=== PATIENT | female | born 1950 | race Caucasian/White ===

== ENCOUNTER 2021-07-02 08:58 | Outpatient (CLI) | payer MEDICARE, SELFPAY ==
--- NOTE | ~2021-07-02 | DEXA_ITS ---
Bone Density Report Name: VINNY SOARES Age: 70 Sex: Female Ethnicity: White Date of : 1950 Indication: postmenopausal; screening for osteoporosis; height loss; cancer; rheumatoid arthritis; Referring Provider: LENNY ROBLES Study: Bone densitometry was performed. Exam Date: July 02, 2021 Accession number: [id number] Bone Density: Region BMD T-score Z-score Classification AP Spine(L1-L4) 0.984 -0.6 1.6 Normal Femoral Neck (Left) 0.869 0.2 2.0 Normal Total Hip (Left) 1.030 0.7 2.3 Normal Femoral Neck (Right) 0.902 0.5 2.3 Normal Total Hip (Right) 1.032 0.7 2.3 Normal Total Hip Mean 1.031 0.7 2.3 Normal World Health Organization criteria for BMD impression classify patients as: Normal (T-score at or above -1.0), Osteopenia (T-score between -1.0 and -2.5), or Osteoporosis (T-score at or below -2.5). 10-year Fracture Risk: FRAX not reported because: All T-scores for Spine Total, Hip Total, Femoral Neck at or above -1.0 Clinical Information Provided by Patient: Has rheumatoid arthritis Has used the following medications: Vitamin D, Calcium Has the following medical conditions: Cancer Patient maximum height was 64 Menopause Age: 53 Onset of menses at age 11 Number of children 2 Impression: The patient has normal bone mass. Discussion: BONE DENSITY IS ABOVE THE MINIMUM DESIRABLE LEVEL AT ALL SKELETAL SITES TESTED. This patient?s bone mineral density is above the minimum desirable level (T-score -1.0 or better) at all sites measured. The patient should follow a healthful lifestyle (good nutrition with adequate calcium and vitamin D, and appropriate weight-bearing exercise). Follow-Up: Consider repeating this study in 5 years or sooner if there is some new clinical indication. Reported by: DAYNE on 07/02/2021 9:25:00 AM. Reviewed, dictated and finalized at location [facility]
== END 2021-07-02 08:59 | disposition home or self-care (01) ==
PROVIDERS: PCP Family Medicine; Visit Provider Physician Assistant
DX: Z78.0 Asymptomatic menopausal state (principal)
CPT/HCPCS: 77080